=== PATIENT | male | born 1960 | race Caucasian/White ===

== ENCOUNTER 2022-09-05 10:44 | Outpatient (CLI) | payer OTHER | END 2022-09-05 13:05 | disposition home or self-care (01) | LOC: LAB 10:44 | PROVIDERS: ATTEND Internal Medicine | DX: E78.9 Disorder of lipoprotein metabolism, unspecified (principal); I10 Essential (primary) hypertension; Z13.1 Encounter for screening for diabetes mellitus; Z13.29 Encounter for screening for other suspected endocrine disorder; C61 Malignant neoplasm of prostate; E55.9 Vitamin D deficiency, unspecified ==

== ENCOUNTER 2025-02-04 14:43 | Outpatient (CLI) | payer OTHER | END 2025-02-04 15:25 | disposition home or self-care (01) | LOC: RAD 14:43 | PROVIDERS: ATTEND Internal Medicine | DX: R05.9 Cough, unspecified (principal) ==